=== PATIENT | female | born 1955 ===

== ENCOUNTER 2018-07-29 12:43 | Emergency (ER) | payer SELFPAY ==
[2018-07-29 12:46] VITALS: BP 137/83; RESP 18; O2SAT 100
[2018-07-29 12:51] VITALS: PULSE 72; TEMP 98
--- NOTE | 2018-07-29 13:50 | ED PDOC ---
Lower Extremity Pain/Injury Time Seen by Provider: 07/29/18 13:08 Chief Complaint (Nursing): Lower Extremity Problem/Injury Chief Complaint (Provider): Right knee pain History Per: Patient History/Exam Limitations: no limitations Onset/Duration Of Symptoms: Days (4) Current Symptoms Are (Timing): Still Present Additional History Per: Patient Additional Complaint(s): 62yo female, with history of hypertension, comes to ER reporting acute right knee pain x 4 days. Patient states while walking 4 days ago, she misstepped and since then has felt the pain in her knee. Patient reports mild swelling and states she has been using ice-packs to the area; patient also reports she has been taking Motrin intermittently with some relief. Patient states the pain progressed to the point where she was unable to bear weight; patient then called 911 and was brought to ER by EMS for evaluation. She reports intermittent numbness and tingling in her right foot but denies any right hip or ankle pain. She also denies any dizziness, falls or direct trauma to the area. Patient states in the past, she had "liquid" in her left knee, which required a drainage (while in the DR.) Patient otherwise denies any fever, chills, or sweats. She denies any history of hyperlipidemia, CAD or diabetes. No additional complaints. - Hip Currently Unable To: Bear Weight Past Medical History Reviewed: Historical Data, Nursing Documentation, Vital Signs Vital Signs: Last Vital Signs Temp 98 F 07/29/18 12:48 Pulse 72 07/29/18 12:48 Resp 18 07/29/18 12:48 BP 137/83 07/29/18 12:48 Pulse Ox 100 07/29/18 12:48 - Medical History PMH: HTN Denies: CAD, Diabetes, Hyperlipidemia - Surgical History Surgical History: No Surg Hx - Family History Family History: States: No Known Family Hx - Living Arrangements Living Arrangements: With Family - Home Medications Home Medications: Ambulatory Orders Medication Instructions Recorded Acetaminophen [Tylenol 325mg tab] 650 mg PO Q6 PRN 7 Days tab 07/29/18 Ibuprofen [Motrin Tab] 800 mg PO Q6 PRN 7 Days tab 07/29/18 - Allergies Allergies/Adverse Reactions: Allergies Allergy/AdvReac Type Severity Reaction Status Date / Time No Known Allergies Allergy Verified 07/29/18 12:47 Review of Systems ROS Statement: Except As Marked, All Systems Reviewed And Found Negative (HPI) Constitutional: Negative for: Fever, Chills Musculoskeletal: Positive for: Other (right knee pain). Negative for: Foot Pain Neurological: Positive for: Numbness. Negative for: Weakness Physical Exam - Reviewed Vital Signs Reviewed: Yes - Physical Exam Appears: Positive for: Non-toxic, No Acute Distress Pulses-Dorsalis Pedis (R): 2+ Extremity: Positive for: Tenderness (to palpation of right lateral knee), Capillary Refill (< 2 seconds). Negative for: Normal ROM ((+) decreased ROM of right knee; pain with flexion), Pedal Edema, Calf Tenderness, Deformity, Other (edema, erythema or eccymosis to right knee) Neurologic/Psych: Positive for: Alert, Oriented. Negative for: Motor/Sensory Deficits - ECG O2 Sat by Pulse Oximetry: 100 (RA) Pulse Ox Interpretation: Normal Medical Decision Making Medical Decision Making: Impression: Acute right knee pain x 4 days Plan: -- Ibuprofen 800mg PO -- XR Right knee 1430 XR Right Knee FINDINGS: BONES: No acute fracture. JOINTS: Unremarkable. JOINT EFFUSION: None. OTHER FINDINGS: None. IMPRESSION: No demonstrated fracture dislocation. 1500 On reassessment, patient with persistent knee pain; unable to flex knee due to pain. CT Right Knee w/o contrast ordered for further evaluation. Patient given Percocet 1tab PO for pain relief. 1650 CT Right Knee FINDINGS: BONES: No fracture or focal lesion. Tiny few spurs are present. Femoral head maintains normal contour. unremarkable. No dislocation. No degenerative changes. JOINT: Minimal medial femoral tibial joint space narrowing. Medial tibial spine degenerative spurring. SOFT TISSUES: Small effusion present. Quadriceps insertional enthesophyte IMPRESSION: No fracture or dislocation.. Minimal degenerative changes most notably affecting the medial femoral tibial compartment. Small knee joint effusion Quadriceps insertional enthesophyte [address] findings and expresses understanding. Patient's knee wrapped in owen bandage; post-procedure neurovascular exam is normal. Patient informed to follow up at Orthopedic clinic. Stable for discharge home. Scribe Attestation: Documented by Raissa Mason acting as a scribe for MARTIN Dickerson Provider Attestation: All medical record entries made by the Scribe were at my direction and personally dictated by me. I have reviewed the chart and agree that the record accurately reflects my personal performance of the history, physical exam, medical decision making, and the department course for this patient. I have also personally directed, reviewed, and agree with the discharge instructions and disposition. Disposition - Clinical Impression Clinical Impression: Knee pain - Disposition Referrals: [facility] [Outside] Disposition: Routine/Home Disposition Time: 17:13 Condition: STABLE Additional Instructions: F/u with orthopedist for further evaluation and treatment of knee pain. Take Tylenol and Ibuprofen for knee pain. Use OWEN bandage for comfort. Return to ER if you are unable to ambulate. Prescriptions: Acetaminophen [Tylenol 325mg tab] 650 mg PO Q6 PRN 7 Days tab PRN Reason: Pain, Moderate (4-7) Ibuprofen [Motrin Tab] 800 mg PO Q6 PRN 7 Days tab PRN Reason: Pain, Moderate (4-7) Instructions: Knee Pain (DC) Forms: [employer] (Peruvian) Print Language: MOROCCAN
--- NOTE | 2018-07-29 14:17 | RAD ---
Date of service: 07/29/2018 PROCEDURE: Right Knee Radiographs. HISTORY: right knee pain, unable to bear weight COMPARISON: None. FINDINGS: BONES: No acute fracture. JOINTS: Unremarkable. JOINT EFFUSION: None. OTHER FINDINGS: None. IMPRESSION: No demonstrated fracture dislocation.
[2018-07-29] MEDS ORDERED: Oxycodone/Acetaminophen 5/325 mg Tab PO ONE (15:00)
[2018-07-29] MEDS ORDERED: Oxycodone/Acetaminophen 5/325 mg Tab ONE (15:52)
--- NOTE | 2018-07-29 16:43 | CT ---
Date of service: 07/29/2018 PROCEDURE: CT of the right knee HISTORY: knee pain, unable to bear weight COMPARISON: Right knee x-rays 07/29/2018 TECHNIQUE: Contiguous axial images of the left hip were obtained. Coronal and sagittal reformats were generated. Radiation dose: Total exam DLP = 278.29 mGy-cm. This CT exam was performed using one or more of the following dose reduction techniques: Automated exposure control, adjustment of the mA and/or kV according to patient size, and/or use of iterative reconstruction technique. FINDINGS: BONES: No fracture or focal lesion. Tiny few spurs are present. Femoral head maintains normal contour. unremarkable. No dislocation. No degenerative changes. JOINT: Minimal medial femoral tibial joint space narrowing. Medial tibial spine degenerative spurring. SOFT TISSUES: Small effusion present. Quadriceps insertional enthesophyte IMPRESSION: No fracture or dislocation.. Minimal degenerative changes most notably affecting the medial femoral tibial compartment. Small knee joint effusion Quadriceps insertional enthesophyte
== END 2018-07-29 17:55 | disposition home or self-care (01) ==
LOC: H.ER 12:43
DX: M25.561 Pain in right knee (principal); I10 Essential (primary) hypertension